=== PATIENT | female | born 1965 | race Caucasian/White ===

== ENCOUNTER 2019-02-27 22:35 | Emergency (ER) | payer MEDICAID ==
[~2019-02-27] VITALS: Ht 165.1 cm; Wt 73.0 kg
[2019-02-28 01:20] VITALS: BP 143/81
== END 2019-02-28 01:25 | disposition home or self-care (01) ==
LOC: ER 22:35
DX: K64.4 Residual hemorrhoidal skin tags (principal); K59.00 Constipation, unspecified; E78.00 Pure hypercholesterolemia, unspecified; E03.9 Hypothyroidism, unspecified; Z90.49 Acquired absence of other specified parts of digestive tract
CPT/HCPCS: 99283